=== PATIENT | female | born 1955 | race Caucasian/White ===

== ENCOUNTER 2018-07-20 14:28 | Outpatient (CLI) | payer MEDICARE ==
--- NOTE | 2018-07-20 15:14 | MMO ---
BILATERAL MAMMOGRAMS: DATE: 07/20/18 HISTORY: Screening mammography. COMPARISON: Multiple exams back to 05/09/14. FINDINGS: Heterogeneously dense fibroglandular tissue. No dominant mass or suspicious calcifications. The study was evaluated with the assistance of computer-aided detection. IMPRESSION: BIRADS 1: Negative Suggest routine follow-up. POS: [facility]
== END 2018-07-20 14:29 | disposition home or self-care (01) ==
LOC: SCSMAMMO 14:28
PROVIDERS: ATTEND Family Medicine
DX: Z12.31 Encounter for screening mammogram for malignant neoplasm of breast (principal)
CPT/HCPCS: 77067

== ENCOUNTER 2021-04-07 15:20 | Outpatient (CLI) | payer MEDICARE | END 2021-04-07 15:21 | disposition home or self-care (01) | LOC: SCSRAD 15:20 | PROVIDERS: ATTEND Anesthesiology Pain Medicine | DX: M43.12 Spondylolisthesis, cervical region (principal); M47.812 Spondylosis without myelopathy or radiculopathy, cervical region | CPT/HCPCS: 72052 ==